=== PATIENT | female | born 1945 | race American Indian/Alaskan Native ===

== ENCOUNTER 2016-10-16 10:09 | Outpatient (CLI) | payer OTHER ==
--- NOTE | 2016-10-16 11:24 | XRay Report ---
LEFT TIBIA AND FIBULA, ONE VIEW: HISTORY: Left leg pain. FINDINGS: There is nonspecific distal subcutaneous swelling or edema. Normal bone mineralization. No osseous abnormality or joint pathology is appreciated on single AP view. IMPRESSION: Nonspecific soft tissue swelling/edema. Unremarkable bony structures.
--- NOTE | 2016-10-16 13:05 | Mammography Report ---
BONE DEXA:10/16/16 10:09:00 CLINICAL: Postmenopausal. No comparison. TECHNIQUE: Two site bone DEXA performed on an Hologic scanner. FINDINGS: The average BMD of the lumbar spine L1-L4 is 1.064g/cm squared with a T-score of +0.2 and a Z-score of +1.5. The average BMD of the left hip is 0.922g/cm squared with a T-score of -0.2 and a Z-score of +0.4. IMPRESSION: WHO classification: Normal with average fracture risk based on the spine and left hip measurements. RECOMMENDATION: Clinical correlation and routine screening. DEFINITIONS: BMD = Bone Mineral Density T-score = BMD related to mean peak bone mass of young adult (mean expressed in Standard Deviation) Z-score = Age matched BMD expressed in SD World Health Organization (WHO) Diagnostic Criteria Normal T-score > -1 SD Osteopenia T-score between -1 and -2.4 SD Osteoporosis T-score -2.5 SD or below NOTE: BMD is not the only risk factor for fracture. One should also consider factors such as the patient's age, risk of falling, previous osteoporotic fracture, family history of osteoporotic fractures, current smoker, and low body weight. Z-scores are not calculated if >80 years of age.
== END 2016-10-16 10:10 | disposition home or self-care (01) ==
LOC: MAMMO 10:09
PROVIDERS: ATTEND Family Medicine Adult Medicine
DX: E28.39 Other primary ovarian failure (principal); Z78.0 Asymptomatic menopausal state
CPT/HCPCS: 77080

== ENCOUNTER 2017-06-17 09:16 | Outpatient (CLI) | payer OTHER ==
--- NOTE | 2017-06-17 13:36 | Mammography Report ---
BILATERAL DIGITAL SCREENING MAMMOGRAM with CAD: 06/17/17 09:16:00 CLINICAL: Routine screening. COMPARISON: 06/19/16 FINDINGS: There are bilateral scattered areas of fibroglandular density.No mass, architectural distortion or suspicious calcifications. IMPRESSION: No mammographic evidence of malignancy. BI-RADS CATEGORY: 1 -- Negative RECOMMENDATION: Routine mammographic screening in one year. COMMENT: Patient follow-up letters are generated by our [employer] application.
== END 2017-06-17 09:17 | disposition home or self-care (01) ==
LOC: MAMMO 09:16
PROVIDERS: ATTEND Family Medicine Adult Medicine
DX: Z12.31 Encounter for screening mammogram for malignant neoplasm of breast (principal)
CPT/HCPCS: 77067; G0202

== ENCOUNTER 2017-07-11 10:51 | Outpatient (CLI) | payer OTHER ==
[2017-07-11 11:32] LABS: Blood Urea Nitrogen 9 mg/dL (7-17)
== END 2017-07-11 10:52 | disposition home or self-care (01) ==
LOC: MRI 10:51
PROVIDERS: ATTEND Obstetrics & Gynecology Gynecology
DX: N90.7 Vulvar cyst (principal)
CPT/HCPCS: 36415; 82565; 84520

== ENCOUNTER 2018-06-18 09:40 | Outpatient (CLI) | payer MEDICARE ==
--- NOTE | 2018-06-19 09:18 | Mammography Report ---
Bilateral mammogram: Compared to 06/17/17. CAD study utilized. Findings: Predominance adipose tissue bilaterally. No mass or microcalcification. Benign axillary nodes. Impression: Benign findings. Annual followup recommended. BI-RADS CATEGORY: 2 = Benign ACR BI-RADS MAMMOGRAPHIC CODES: 0 = Needs additional imaging evaluation; 1 = Negative; 2 = Benign; 3 = Probably benign; 4 = Suspicious; 5 = Malignant; 6 = Known biopsy-proven malignancy COMMENT: 1. Dense breast tissue, i.e., adenosis, fibrocystic changes, etc., may obscure an underlying neoplasm. 2. Approximately 10% of cancers are not detected with mammography. 3. A negative mammography report should not delay biopsy if a clinically suspicious mass is present. COMMENT: Patient follow-up letters are generated in [employer].
== END 2018-06-18 09:41 | disposition home or self-care (01) ==
LOC: MAMMO 09:40
PROVIDERS: ATTEND Family Medicine Adult Medicine
DX: Z12.31 Encounter for screening mammogram for malignant neoplasm of breast (principal)
CPT/HCPCS: 77067

== ENCOUNTER 2019-06-21 09:58 | Outpatient (CLI) | payer MEDICARE ==
--- NOTE | 2019-06-22 09:02 | Mammography Report ---
DIGITAL SCREENING MAMMOGRAM WITH CAD, 06/21/2019 INDICATION: Routine screening mammography. TECHNIQUE: Digital bilateral 2D mammography was obtained in the craniocaudal and mediolateral obliq ue projections. This examination was interpreted with the benefit of Computer-Aided Detection analysi s. COMPARISON: 06/18/2018 and 06/19/2016 FINDINGS: Breast Density: The breasts are heterogeneously dense, which may obscure small masses. There is no evidence of dominant mass, suspicious calcifications or architectural distortion in eithe r breast. IMPRESSION: No mammographic evidence of malignancy. Follow up recommendation: Routine yearly BI-RADS Category 1: Negative. A "normal" or negative report should not discourage follow up or biopsy of a clinically significant f inding. A written summary of these findings will be mailed to the patient. The patient will be entered into a mammography reporting system which will generate a reminder letter for the patient's next appointmen t at the appropriate interval. The [employer] recommends yearly mammograms starting at age 40 and continuing as l [place] as a woman is in good health. Breast MRI is recommended for women with an approximate 20-25% or greater lifetime risk of breast cancer, including women with a strong family history of breast or ova bimal cancer or who have been treated for Hodgkin's disease. Signer Name: Bentley Camp MD Signed: 06/22/2019 8:57 AM Workstation Name: [id number]
== END 2019-06-21 09:59 | disposition home or self-care (01) ==
LOC: MAMMO 09:58
PROVIDERS: ATTEND Nurse Practitioner Women's Health
DX: Z12.31 Encounter for screening mammogram for malignant neoplasm of breast (principal)
CPT/HCPCS: 77067